=== PATIENT | male | born 1975 | race Caucasian/White ===

== ENCOUNTER 2022-07-01 13:29 | Emergency (ER) | payer MEDICAID, OTHER, SELFPAY ==
[2022-07-01] MEDS ORDERED: Ibuprofen 200 MG/10 ML ORAL.SUSP ONE (14:29)
[2022-07-01] MEDS ORDERED: Ibuprofen 600 MG TAB ONE (14:30)
== END 2022-07-01 14:35 | disposition home or self-care (01) ==
LOC: MADERS 13:29
DX: S43.004A Unspecified dislocation of right shoulder joint, initial encounter (principal); F17.210 Nicotine dependence, cigarettes, uncomplicated; X58.XXXA Exposure to other specified factors, initial encounter
CPT/HCPCS: 23650